=== PATIENT | male | born 2000 | race Caucasian/White ===

== ENCOUNTER 2024-08-27 22:30 | Emergency (ER) | payer OTHER, SELFPAY ==
[2024-08-27 22:32] VITALS: BP 158/84; PULSE 59; RESP 16; TEMP 36.8; O2SAT 99; BMI 19.7
[2024-08-27] MEDS: Lidocaine/Epi/Tetracaine 50 ML 1 APPLIC TOPICAL (22:54)
[2024-08-27] MEDS: Lidocaine 1% (20 ml mdv) 20 ML Vial INFILT (22:55)
--- NOTE | 2024-08-27 23:57 | EDS_ITS ---
HPI History of Present Illness Chief Complaint: Laceration Informant: patient and parent Narrative Narrative: 24-year-old male had a syncopal near syncopal episode and struck his face on a PNO causing laceration to the forehead and between the eyebrows. They were talking about IVs and getting his wisdom teeth pulled. He did not experience any chest pain palpitations shortness of breath prior to the event. Other than the laceration he states he is feeling fine. PFSH PFSH Medical History no medical history Home Medications ?Medication ?Instructions ?Recorded ?Last Taken ?Type NK 08/27/24 Unknown History Allergy/AdvReac Type Severity Reaction Status Date / Time No Known Allergies Allergy Verified 08/27/24 22:34 Social History Smoking Status: Never smoker alcohol intake: never ROS ROS ED Constitutional Constitutional ED: Denies chills, fever(s) or weight loss Eyes Eyes: Denies change in vision or diplopia ENT ENT ED: Denies ear pain, rhinorrhea or sore throat Cardiovascular Cardiovascular: Denies chest pain, orthopnea, palpitations or racing heartbeat Respiratory/Chest Respiratory/Chest: Denies cough, dyspnea or orthopnea Gastrointestinal Gastrointestinal: Denies abdominal pain, diarrhea, nausea or vomiting Genitourinary Genitourinary ED: Denies dysuria, hematuria or urinary frequency Musculoskeletal Musculoskeletal: Denies arthralgias or myalgias Integumentary Reports other Details: Facial laceration ; Denies abscess or rash Neurologic Neurologic: Denies headache(s) or weakness Psychiatric Psychiatric: Denies anxiety, depression, suicidal ideation or suicidal thoughts Endocrine Endocrinology: Denies polydipsia, polyphagia or polyuria Allergic/Immunologic Allergic/Immunologic ED: Denies mouth swelling, tongue swelling or urticaria EXAM Physical Exam Const Vital Signs: 08/27/24 22:32 Temperature 98.2 F Temperature Source Oral Pulse Rate 59 L Respiratory Rate 16 Blood Pressure 158/84 H Blood Pressure Mean 108 Pulse Ox 99 Oxygen Delivery Method Room Air Positive well nourished and well developed General Appearance ED: well developed HEENT Reports normocephalic and moist mucous membranes HEENT Narrative: 3 cm oblique linear laceration in between the eyebrows extending down to the start of his nose. The wound is gaping. He is able to wrinkle his forehead. Neurovascularly intact. Bleeding controlled. There is no septal hematoma no obvious nasal deformity or palpable bony depression Eyes PERRL and EOMs intact bilaterally Neck no lymphadenopathy, supple and no JVD Resp normal respiratory effort and clear to auscultation bilaterally Cardio regular rate, regular rhythm and no murmurs GI normal to inspection, nondistended, normoactive bowel sounds and non-tender Palpation: soft Back/Spine no CVA tenderness and normal ROM Extremity normal to inspection General Extremety ED: Negative for edema General Extremity: Negative for edema Neuro oriented x3 and CN's II-XII intact bilaterally Sensorium / Orientation: alert Motor Exam: strength 5/5 throughout Psych mental status grossly normal Mood & Affect: Negative for depressed or tearful Skin no rashes or lesions noted and no wounds MDM MDM MDM Narrative Medical decision making narrative: Differential diagnosis includes intracranial hemorrhage hematoma fracture neurovascular injury laceration Wound was locally anesthetized using let and then further anesthetized using 1% lidocaine. Wound was washed with Shur-Clens and explored. It was closed using a total of 6 simple interrupted Ethilon sutures. Wound length of 3 cm. Wound care discussed with patient and family stitches will need to be removed in about 5 days. History & Record Review Discussion w/independent historian: Patient and Family Discharge Plan Triage Chief Complaint: Laceration ED Provider: Alireza Hernandez Dx/Rx/DC Orders Clinical Impression: Facial laceration Instructions: ED Laceration, All Closures Prescriptions: No Action NK Primary Care Provider: Care Physician,No Primary [facility]errals: [facility] [Provider Group] - 5 Days for suture removal Care Physician,No Primary [Primary Care Provider] - Print Language: Kinyarwanda Disposition Disposition: Home, Self Care
[2024-08-28] VITALS: BP 142/74; PULSE 58; RESP 16; TEMP 37.1; O2SAT 98
== END 2024-08-28 00:14 | disposition home or self-care (01) ==
PROVIDERS: Emergency Provider Emergency Medicine; Visit Provider Emergency Medicine
DX: S01.81XA Laceration without foreign body of other part of head, initial encounter (principal); R55 Syncope and collapse
CPT/HCPCS: 12013; 99283

== ENCOUNTER 2025-03-16 08:04 | Emergency (ER) | payer OTHER, SELFPAY ==
[2025-03-16 08:05] VITALS: BP 136/96; PULSE 54; RESP 16; TEMP 37.1; O2SAT 100; BMI 18.9
[2025-03-16 08:07] VITALS: BP 122/71; PULSE 49; RESP 18; TEMP 36.7; O2SAT 100
--- NOTE | 2025-03-16 08:34 | CT_ITS ---
PROCEDURE: ABDOMEN/PELVIS W IV CONT ONLY 03/16/2025 REASON FOR EXAM: RIGHT LOWER QUADRANT PAIN Two-month history are nausea and vomiting. TECHNIQUE: ABDOMEN/PELVIS W IV CONT ONLY Coronal and Sagittal reconstruction series were provided. CONTRAST: Isovue 370 VOLUME: 100 mL One or more dose reduction techniques were used (e.g., Automated exposure control, adjustment of the mA and/or kV according to patient size, use of iterative reconstruction technique. RADIATION DOSE SUMMARY: CTDlvol: 13.25 mGy DLP: 352.41 mGycm COMPARISON: None FINDINGS: Lung bases: Lung bases are clear. Liver: There is evidence of hepatic congestion with prominence of the portal venous triads. Gallbladder: Unremarkable Spleen: Normal size. Pancreas: Normal size without evidence of mass surrounding inflammation or ductal dilation. Adrenals: Unremarkable Kidneys: Normal renal sizes. No hydronephrosis. Bladder: Bladder wall thickening. Distended urinary bladder. Findings suggestive of inflammatory changes in the region of the prostate. Clinical correlation recommended. The seminal vesicles are enlarged. Bowel: Unremarkable Appendix: Unremarkable Lymph nodes: Unremarkable. Vasculature: The inferior vena cava is distended. Peritoneum / Retroperitoneum: Unremarkable Bones: Unremarkable CT/Abdomen/Pelvis W IV Cont ONLY IMPRESSION: Hepatic congestion with prominence of the portal venous triads. Distended inferior vena cava. Bladder wall thickening. Findings suggestive of inflammatory changes surrounding the prostate with promi nence of the seminal vesicles. Reading Location: [id number]
--- NOTE | 2025-03-16 08:36 | ED.VIS.GI ---
HPI HPI - GI History of Present Illness Chief Complaint: Abd Pain Narrative Narrative: 25-year-old male who denies significant past medical history presents with his mother because of right lower quadrant abdominal pain that began this morning at 6 AM, approximately 2 and half hours ago. It woke him from sleep. He describes it as both sharp and stabbing and sometimes dull and achy. Is worse with movement and improved by lying still. He denies any fevers or chills but did have an episode of nausea and vomiting. No dysuria or hematuria. However, over the last few weeks, he states that he would have right lower quadrant abdominal pain that would last for about a day and resolved. He may have had dark urine at that time, but it resolved. He runs/jogs frequently and states that he be comes dehydrated easily. He states that the episode that began at 6 AM this morning was a lot worse than previous episodes. He denies any problems with bowel movements. No diarrhea. [facility] Medical History Visit for suture removal Medical History no medical history Home Medications ?Medication ?Instructions ?Recorded ?Last Taken ?Type NK 08/27/24 Unknown History Allergy/AdvReac Type Severity Reaction Status Date / Time No Known Allergies Allergy Verified 03/16/25 08:07 Social History Smoking Status: Never smoker alcohol intake: never ROS ROS ED ROS Narrative Review of systems positive for right lower quadrant abdominal pain described as both sharp and stabbing and dull and achy. Positive nausea and vomiting this morning. Previous dark urine and intermittent episodes that lasted a day of right lower quadrant pain over the last few weeks. No problems with bowel movements, no diarrhea. No prior abdominal surgeries. Denies daily medications as well. EXAM Physical Exam Narrative Exam Narrative: Afebrile. Vital signs noted. Nontoxic-appearing. Cardiovascular examination reveals bradycardia at rest. Lungs are clear to auscultation bilaterally. The abdomen is soft with mild tenderness to palpation in the right lower quadrant of the abdomen. No guarding or rebound. Negative Rovsing sign, negative heel strike, no pain with flexion of right knee. Neurological examination nonfocal, nonlateralizing. Const Vital Signs: 03/16/25 08:05 03/16/25 08:07 03/16/25 10:15 Temperature 98.8 F 98.1 F 96.9 F L Temperature Source Oral Oral Oral Pulse Rate 54 L 49 L 45 L Respiratory Rate 16 18 16 Blood Pressure 136/96 H 122/71 H 111/64 Blood Pressure Mean 109 88 79 Pulse Ox 100 100 100 Oxygen Delivery Method Room Air Room Air Room Air 03/16/25 10:15 Temperature Temperature Source Pulse Rate 46 L Respiratory Rate 16 Blood Pressure 110/64 Blood Pressure Mean 79 Pulse Ox 99 Oxygen Delivery Method Room Air MDM MDM MDM Narrative Medical decision making narrative: The differential diagnosis includes but not limited to musculoskeletal abdominal pain versus acute appendicitis versus ureterolithiasis versus pyelonephritis. I have lower clinical suspicion for pyelonephritis as he is not having dysuria or hematuria, no fevers or chills. I do feel CT imaging is indicated. He was bolused normal saline 1 L intravenously and administered morphine and ondansetron for analgesia. Upon repeat examination, he is feeling improved. I reviewed his laboratory work and he has slight elevation of his white count at 11.2 which I think is nonspecific, hemoglobin 13.4, hematocrit 39.3. Platelet count normal at 174. CMP is significant for slightly elevated AST of 72 and ALT of 87 with total bili 2.0. I also find this nonspecific. Lipase normal at 26 so I doubt pancreatitis. Urinalysis is negative for infection with 0 WBCs and 0 RBCs, 0 bacteria. I do not feel antibiotics are indicated. I reviewed his CT report and the appendix appears normal. He does have hepatic congestion with prominence of portal vein triads. I do not feel he requires admission for this. I suggested follow-up with gastroenterology and/your primary care. Additionally, CT commented on inflammation around the prostate and thickened bladder wall. I do not feel he has a cystitis that requires antibiotics, and I discussed with him the possibility of prostatitis, but I do not think that is the cause of his right lower quadrant abdominal pain. In discussion with the patient, he is declining rectal examination and he is not having any symptoms of prostatitis, so I discussed return instructions with him in follow-up. I feel he can be discharged safely home. Patient and mother are agreeable to the plan. Disposition is discharged home in stable condition. History & Record Review Discussion w/independent historian: Patient and Family (Mother) Additional record(s) reviewed:: Prior ED visit (Previously seen for facial laceration, noncontributory to current chief complaint.) Lab Data Attestation: I reviewed the patient's lab results. Labs: Laboratory Results - last 24 hr 03/16/25 03/16/25 08:57 10:47 WBC 11.2 H RBC 4.41 L Hgb 13.4 Hct 39.3 L MCV 89.1 MCH 30.4 MCHC 34.1 RDW Std Deviation 41.1 RDW Coeff of Essence 12.6 Plt Count 174 MPV 9.0 Immature Gran % (Auto) 0.400 Neut % (Auto) 76.5 H Lymph % (Auto) 16.1 L Arthur % (Auto) 5.2 Eos % (Auto) 1.1 Baso % (Auto) 0.7 Absolute Neuts (auto) 8.6 H Absolute Lymphs (auto) 1.81 Nucleated RBC % 0 Sodium 141 Potassium 3.7 Chloride 102 Carbon Dioxide 27.9 Anion Gap 11 BUN 19 Creatinine 0.89 Estim Creat Clear Calc 103.37 Est GFR (MDRD) Non-Af 121 BUN/Creatinine Ratio 21.9 H Glucose 92 Calcium 9.7 Total Bilirubin 2.04 H AST 72 H ALT 87 H Alkaline Phosphatase 70 Total Protein 6.9 Albumin 4.5 Globulin 2.4 Albumin/Globulin Ratio 1.9 Lipase 26 Urine Color Yellow Urine Clarity Clear Urine pH 6.5 Ur Specific Ch[place]rant 1.010 Urine Protein 30 H Urine Glucose (UA) Normal Urine Ketones Negative Urine Occult Blood 250 H Urine Nitrite Negative Urine Bilirubin Negative Urine Urobilinogen Normal Ur Leukocyte Esterase Negative Urine RBC 0 SEEN Urine WBC 0 SEEN Ur Squamous Epith Cells 0 SEEN Urine Bacteria 0 SEEN Urine Mucus 0 SEEN Radiography Diagnostic Testing: Clinical Impression(s) from Imaging Studies Abdomen/Pelvis CT 03/16/25 08:34 IMPRESSION: Hepatic congestion with prominence of the portal venous triads. Distended inferior vena cava. Bladder wall thickening. Findings suggestive of inflammatory changes surrounding the prostate with prominence of the seminal vesicles. Reading Location: [id number] Discharge Plan Triage Chief Complaint: Abd Pain ED Provider: Eladio Ch Dx/Rx/DC Orders Clinical Impression: Abdominal pain, acute, right lower quadrant, Elevated LFTs Instructions: ED Abdominal Pain Unkn Cause Male... Prescriptions: No Action NK Primary Care Provider: Care Physician,No Primary Referrals: Bradley Burkett MD [Med Staff - Active Staff] - As soon as possible Lazaro Carreon DO [Med Staff - Active Staff] - 1-2 Weeks Care Physician,No Primary [Primary Care Provider] - Activity Restrictions/Additional Instructions: You had abnormal liver function test today. These should be rechecked in the future. Follow-up with your primary care provider or gastroenterology, Dr. Carreon in 1 to 2 weeks. Return to the emergency department with fever, increased pain, new or worsening symptoms. You should follow-up with a primary care provider as well. Print Language: Danish Disposition Disposition: Home, Self Care
[2025-03-16 09:02] LABS: Hematocrit 39.3 % (40-54); Hemoglobin 13.4 g/dL (13.0-16.5); Immature Granulocytes Count 0.050 X10^3/uL (0.0-0.0); Mean Corp Hgb Conc 34.1 g/dL (32-36); Mean Corpuscular Volume 89.1 fL (80-94); Mean Platelet Vol. 9.0 fl (6.2-12.0); NRBC Flagged by Analyzer 0 % (0-5); Platelet Count 174 K/mm3 (150-450); RBC Distribution Width CV 12.6 % (11.6-14.6); RBC Distribution Width SD 41.1 fl (35.1-43.9); Red Blood Count 4.41 M/mm3 (4.6-6.2); White Blood Count 11.2 K/mm3 (4.4-11.0)
[2025-03-16 09:38] LABS: AST(SGOT) 72 U/L (<=37); Alanine Aminotransfer ALT/SGPT 87 U/L (<=46); Albumin, Serum 4.5 g/dL (3.5-5.0); Alkaline Phosphatase 70 U/L (40-129); Anion Gap 11 (5-15); BUN 19 mg/dL (4-19); BUN/Creat Ratio 21.9 RATIO (10-20); Calcium,Total 9.7 mg/dL (7.6-11.0); Carbon Dioxide 27.9 mmol/L (21.0-32.0); Chloride 102 mmol/L (98-108); Estimated Creatinine Clearance 103.37 ml/min (50-250); Globulin 2.4 g/dL (2.2-4.2); Glucose 92 mg/dL (70-99); Lipase 26 U/L (13-75); Potassium 3.7 mmol/L (3.3-5.1)
[2025-03-16] MEDS: 0.9% Normal Saline (1000mL) 1,000 ML 999 ML IV (10:13)
[2025-03-16 10:15] VITALS: BP 110/64; BP 111/64; PULSE 45; PULSE 46; RESP 16; TEMP 36.1; O2SAT 100; O2SAT 99
[2025-03-16 10:53] LABS: Mucous, Urine 0 SEEN /hpf (<or=2+); Red Blood Cells-Urine 0 SEEN /hpf (0-5); Squamous Epithelial Cells - UA 0 SEEN /hpf (0-5)
[2025-03-16 10:54] LABS: Color, Urine Yellow (Yellow); Glucose, Dipstick Normal (Normal); Ketone-Dipstick Negative (Negative); Leukocyte Esterase-Dipstick Negative /ul (Negative); Nitrite-Dipstick Negative (Negative); Occult Blood-Urine 250 /ul (Negative); Protein-Dipstick 30 mg/dl (Negative); Specific Gravity, Urine 1.010 (1.002-1.030); Urine Bilirubin Dipstick Negative (Negative)
--- OUTSIDE RECORDS SUMMARY | 2025-03-16 11:04 | XMS RPT_ITS | CCD ---
Author Organization [facility] Care Team Providers Care Territory Supervisor Name Role Phone Michael Paul Attending Unavailable Care Physician, No Primary Referring Unava ilable Care Physician, No Primary Primary Care Unava ilable Alireza Hernandez Attending Unavailable Care Physician, No Primary Primary Care Unava ilable Problems Problem Classification Problem Date Documented Da te Episodic/Chronic Open wounds of head; neck; and trunk (1 source) Laceration without foreign body of other part of head, initial encounter; Translations: [Laceration without foreign body of other part of head, initial encounter] Onset: 09-16-2024 Episodic Results Test Name Value Interpretation Reference Range Facil ity Urgent Care Visit Reporton 0 09-02-2024 Urgent Care Visit Report [facility] [address], [address] [place] [address] OFFICE VISIT Date of Service: 09/02/24 MR#: [id number] Acct: [id number] Name: DOUGLAS HOLDEN Rep #: [id number] : 2000 Provider: ANKUR Paul Age/Sex: 24/M Location[facility] Status: Signed Intake Vital Signs 08/27/24 22:32 09/02/24 08:58 Height 5 ft 9 in BP 124/80 H Position Sitting Pulse 68 Temp 97.4 F L Temp Source Oral Pulse Oximetry (%) 96 Oxygen Delivery Method room air Intake Visit Reasons: SUTURE REMOVAL Accompanied by: Mother Allergies No Known Allergies Allergy (Verified 09/02/24 08:48) Medications ???Medication ???Instructions ???Recorded ???Confirmed ???Type NK 08/27/24 09/02/24 History Nurse's Note: Patient is here for a Suture removal. Patient had 6 sutures placed in the ER. 6 stitches removed at the [facility] and cleaned, [facility] Medical History (Updated 09/02/24 @ 09:04 by ANKUR Nelson) Visit for suture removal Social History Smoking Status: Never smoker alcohol intake: never HPI HPI Details: DOUGLAS HOLDEN, is a 24 M who presents to the office today for HPI: Patient presents today for suture removal on his forehead. About a week ago apparently he was standing beside a panel as the family was talking about IVs and he passed out. 6 sutures were placed at that time and he presents today for removal of them. He denies any fever or drainage from the wound. Does note a mild headache. ROS: As noted in HPI Physical Exam: VITALS: Reviewed. GEN: Healthy appearing, well-developed, NAD. PSYCH: AOx3. Normal memory, mood, and affect. LUNGS: Normal respiratory effort. SKIN: Warm, well perfused. No skin rashes or abnormal lesions noted. Linear well-healed wound noted mid forehead with 6 sutures. MSK: Normal gait. NEURO: Ambulating with no limitations. Normal muscle strength and tone. No focal deficits. Office Procedures Suture/Staple Removal Suture/Staple Staple/Suture Removal: 6 interrupted sutures removed by Andrew Trotter MA. Coding Level of Care Code Off vis,est,level 2 Diagnoses Visit for suture removal Z48.02 Assessment and Plan Assessment and Plan (1) Visit for suture removal: Status: Acute Plan: 6 interrupted sutures were removed. On evaluation wound appears to be healing well with no surrounding erythema or drainage noted. I did recommend that for the next week patient avoid submersing the wound and water such as hot tubs or swimming pools but said that showering would be fine. 09/02/24 0904 Date Michael PASCUAL Cosigner Signature: Date (if applicable) CC: [facility] Emergency Department Summary on 08-27-2024 Emergency Department Summary [facility] Medical Records Department [address] [place] [address] Emergency Department Summary 08/27/24 MR#: [id number] Acct: [id number] Name: DOUGLAS HOLDEN Rep #: [id number] : 2000 From: Alireza Hernandez DO PCP: Care Physician,No Primary Status:DEP ER Location: ED HPI History of Present Illness Chief Complaint: Laceration Informant: patient and parent Narrative Narrative: 24-year-old male had a syncopal near syncopal episode and struck his face on a PNO causing laceration to the forehead and between the eyebrows. They were talking about IVs and getting his wisdom teeth pulled. He did not experience any chest pain palpitations shortness of breath prior to the event. Other than the laceration he states he is feeling fine. PFSH PFSH Medical History no medical history Home Medications ???Medication ???Instructions ???Recorded ???Last Taken ???Type NK 08/27/24 Unknown History Allergy/AdvReac Type Severity Reaction Status Date / Time No Known Allergies Allergy Verified 08/27/24 22:34 Social History Smoking Status: Never smoker alcohol intake: never ROS ROS ED Constitutional Constitutional ED: Denies chills, fever(s) or weight loss Eyes Eyes: Denies change in vision or diplopia ENT ENT ED: Denies ear pain, rhinorrhea or sore throat Cardiovascular Cardiovascular: Denies chest pain, orthopnea, palpitations or racing heartbeat Respiratory/Chest Respiratory/Chest: Denies cough, dyspnea or orthopnea Gastrointestinal Gastrointestinal: Denies abdominal pain, diarrhea, nausea or vomiting Genitourinary Genitourinary ED: Denies dysuria, hematuria or urinary frequency Musculoskeletal Musculoskeletal: Denies arthralgias or myalgias Integumentary Reports other Details: Facial laceration ; Denies abscess or rash Neurologic Neurologic: Denies headache(s) or weakness Psychiatric Psychiatric: Denies anxiety, depression, suicidal ideation or suicidal thoughts Endocrine Endocrinology: Denies polydipsia, polyphagia or polyuria Allergic/Immunologic Allergic/Immunologic ED: Denies mouth swelling, tongue swelling or urticaria EXAM Physical Exam Const Vital Signs: 08/27/24 22:32 Temperature 98.2 F Temperature Source Oral Pulse Rate 59 L Respiratory Rate 16 Blood Pressure 158/84 H Blood Pressure Mean 108 Pulse Ox 99 Oxygen Delivery Method Room Air Positive well nourished and well developed General Appearance ED: well developed HEENT Reports normocephalic and moist mucous membranes HEENT Narrative: 3 cm oblique linear laceration in between the eyebrows extending down to the start of his nose. The wound is gaping. He is able to wrinkle his forehead. Neurovascularly intact. Bleeding controlled. There is no septal hematoma no obvious nasal deformity or palpable bony depression Eyes PERRL and EOMs intact bilaterally Neck no lymphadenopathy, supple and no JVD Resp normal respiratory effort and clear to auscultation bilaterally Cardio regular rate, regular rhythm and no murmurs GI normal to inspection, nondistended, normoactive bowel sounds and non-tender Palpation: soft Back/Spine no CVA tenderness and normal ROM Extremity normal to inspection General Extremety ED: Negative for edema General Extremity: Negative for edema Neuro oriented x3 and CN's II-XII intact bilaterally Sensorium / Orientation: alert Motor Exam: strength 5/5 throughout Psych mental status grossly normal Mood Affect: Negative for depressed or tearful Skin no rashes or lesions noted and no wounds MDM MDM MDM Narrative Medical decision making narrative: Differential diagnosis includes intracranial hemorrhage hematoma fracture neurovascular injury laceration Wound was locally anesthetized using let and then further anesthetized using 1% lidocaine. Wound was washed with Shur-Clens and explored. It was closed using a total of 6 simple interrupted Ethilon sutures. Wound length of 3 cm. Wound care discussed with patient and family stitches will need to be removed in about 5 days. History Record Review Discussion w/independent historian: Patient and Family Discharge Plan Triage Chief Complaint: Laceration ED Provider: Alireza Hernandez Dx/Rx/DC Orders Clinical Impression: Facial laceration Instructions: ED Laceration, All Closures Prescriptions: No Action NK Primary Care Provider: Care Physician,No Primary Referrals: [facility] [Provider Group] - 5 Days for suture removal Care Physician,No Primary [Primary Care Provider] - Print Language: Gabonese Disposition Disposition: Home, Self Care What to do if you have Problems For any increased pain, shortness of breath, bleedi (more content not included)... [facility] Encounters Encounter Date Encounter Type Care Provider Facility Start: 09-02-2024 End: 09-02-2024 ambulatory Michael Paul Facility[place] Start: 08-27-2024 End: 08-28-2024 Emergency department patient visit Alireza Hernandez Facility:[facility] Payers Date Payer Category Payer Self-pay 2024 Unknown [id number] Unknown [id number] Unknown [id number] Summary Purpose Family History No Family History Records Found Advance Directives No Advanced Directives Records Found Additional Source Comments (unrecognized sect ion and content) No Status Records Found INFORMATION SOURCE (unrecogn ized section and content) DATE CREATED AUTHOR 09/18/2024 [facility] FOR RECORDS PERTAINING TO PATIENTS WHO ARE OR HAVE BEEN ENROLLED IN A CHEMICAL DEPENDENCY/SUBSTANCEABUSE PROGRAM, SOME INFORMATION MAY BE OMITTED. This clinical summary was aggregated from multiple sources. Caution should be exercised in using it in the provision of clinical care. This summary normalizes information from multiple sources, and as a consequence, information in this document may materially change the coding, format and clinical context of patient data. In addition, data may be omitted in some cases. CLINICAL DECISIONS SHOULD BE BASED ON THE PRIMARY CLINICAL RECORDS. [employer] provides no warranty or guarantee of the accuracy or completeness of information in this document.
[2025-03-16 11:46] VITALS: BP 112/65; PULSE 43; RESP 16; TEMP 36.2; O2SAT 100
== END 2025-03-16 11:49 | disposition home or self-care (01) ==
PROVIDERS: Emergency Provider Emergency Medicine; Visit Provider Emergency Medicine
DX: R10.31 Right lower quadrant pain (principal); R11.2 Nausea with vomiting, unspecified; K76.1 Chronic passive congestion of liver; R79.89 Other specified abnormal findings of blood chemistry
CPT/HCPCS: 74177; 80053; 81001; 83690; 85025; 96361; 96374; 96375; 99283; Q9967; J2405

== ENCOUNTER 2025-04-13 08:02 | Emergency (ER) | payer OTHER, SELFPAY ==
[2025-04-13] VITALS (8 sets, daily range): BP systolic 112–134; BP diastolic 77–93; PULSE 40–80; RESP 15–106; TEMP 36.6–37.2; O2SAT 97–100; BMI 18.7
--- NOTE | 2025-04-13 08:33 | CT_ITS ---
PROCEDURE: ABDOMEN/PELVIS WITH CONTRAST 04/13/2025 REASON FOR EXAM: RLQ ABD PAIN TECHNIQUE: Procedure Code: [id number] Modality: CT Procedure: ABDOMEN/PELVIS WITH CONTRAST Coronal and Sagittal reconstruction series were provided. CONTRAST: Isovue 370 VOLUME: 98 mL One or more dose reduction techniques were used (e.g., Automated exposure control, adjustment of the mA and/or kV according to patient size, use of iterative reconstruction technique. RADIATION DOSE SUMMARY: CTDlvol: 26 mGy DLP: 329 mGycm COMPARISON: March 16, 2025 FINDINGS: Lung bases: The heart is mildly enlarged. Liver: Intrahepatic IVC and hepatic veins are markedly engorged. Periportal edema is seen throughout the liver similar to prior exam. Gallbladder: No calculus is seen. Some 3rd spacing is seen around the gallbladder wall. No biliary duct dilation. Spleen: Normal. Pancreas: Normal. Adrenals: Normal. Kidneys: Left kidney is normal. Right kidney shows a delayed nephrogram and mild collecting system dilation related to a likely calculus in the pelvis measuring 5.4 mm. Bladder: Normal. Reproductive Organs: Unremarkable Bowel: Normal. Appendix: Normal. Lymph nodes: Normal Vasculature: Normal appearance of the aorta. Engorgement of the IVC. Peritoneum / Retroperitoneum: No free air, free fluid or mass. Bones: Straightening of the normal lumbar lordosis. CT/Abdomen/Pelvis WITH Contrast IMPRESSION: 1. Mild cardiac enlargement. Engorgement of the intrahepatic IVC, hepatic vei ns and marked periportal edema. In the absence of very aggressive hydration, recommend correlation with cardiac history. Conside r echocardiogram if appropriate. Similar finding was seen involving the liver March 16, 2025. 2. Delayed nephrogram on the right side with mild hydronephrosis and hydrouret er related to a 5.3 mm calculus located in the pelvis just proximal to the ureterovesical junction. 3. Normal appendix. Reading Location: [id number]
--- NOTE | 2025-04-13 08:34 | ED.VIS.GI ---
HPI HPI - GI History of Present Illness Chief Complaint: Abd Pain Informant: patient Narrative Narrative: Patient is a 25-year-old male with no significant past medical history presenting with recurrent right lower quadrant abdominal pain, nausea and vomiting. Patient states that started while he was at work around 1:30 AM (works 3rd shift). States it worsened around 4:30 AM and became nonstop. Describes as a cramping and swollen sensation in his right lower quadrant. Notes he did have some mild urgency when it first started and last time he had an episode like this he had some slight dysuria. He developed vomiting around 4 PM and then afterwards anytime he tried to eat or drink some and he would throw up. He denies any diarrhea. States he had a normal bowel movement at 4 AM. He does report that he is training for marathon so he ran a distance run yesterday and then went to work. He is not sure if that is related. He notes he had a similar episode about a month ago seen in the ER. At that time he had an subtle finding of some portal vascular congestion but otherwise had negative workup and ultimately was discharged home. He states between his work schedule and availability he was not able to follow-up. He notes that he got better after couple days and thought maybe this was eating enough. Took 500 mg of Tylenol powder before coming in with no relief of his symptoms Denies any testicular pain. Denies any known family history of inflammatory bowel disease such as Crohn's or ulcerative colitis. Denies any black or blood in stool. No fevers or chills reported. No other complaints or concerns at this time. Denies any alcohol or tobacco use. [facility] Medical History Visit for suture removal Home Medications ?Medication ?Instructions ?Recorded ?Last Taken ?Type ibuprofen 600 mg tablet 600 mg PO Q6H PRN pain #20 tabs 04/13/25 Unknown Rx ondansetron 4 mg disintegrating 4 mg PO Q8H PRN PRN Nausea #10 tabs 04/13/25 Unknown Rx tablet oxycodone-acetaminophen 5 mg-325 1 tab PO Q4H PRN Pain 3 days #18 04/13/25 Unknown Rx mg tablet TABLETS Allergy/AdvReac Type Severity Reaction Status Date / Time No Known Allergies Allergy Verified 04/13/25 08:03 Social History Smoking Status: Never smoker alcohol intake: never ROS ROS ED Constitutional Constitutional ED: Denies chills or fever(s) Respiratory/Chest Respiratory/Chest: Denies cough or dyspnea Gastrointestinal Gastrointestinal: Reports abdominal pain, nausea and vomiting; Denies constipation, diarrhea or melena Genitourinary Genitourinary ED: Reports dysuria; Denies hematuria or urinary frequency Musculoskeletal Musculoskeletal: Denies arthralgias or myalgias Integumentary Denies rash Neurologic Neurologic: Denies weakness Hematologic/Lymphatic Hematologic/Lymphatic: Denies easy bleeding or easy bruising EXAM Physical Exam Const Vital Signs: 04/13/25 08:03 04/13/25 08:06 04/13/25 09:06 Temperature 97.9 F 98 F 97.8 F Temperature Source Oral Oral Oral Pulse Rate 48 L 46 L 43 L Respiratory Rate 18 15 18 Blood Pressure 134/80 H 132/81 H 124/93 H Blood Pressure Mean 98 98 103 Pulse Ox 100 100 100 Oxygen Delivery Method Room Air Room Air Room Air 04/13/25 10:00 04/13/25 11:00 04/13/25 12:00 Temperature 98.4 F 97.8 F Temperature Source Oral Oral Pulse Rate 47 L 57 L 40 L Respiratory Rate 15 17 16 Blood Pressure 122/77 H 125/86 H 120/80 Blood Pressure Mean 92 99 93 Pulse Ox 97 100 98 Oxygen Delivery Method Room Air Room Air 04/13/25 14:00 04/13/25 15:05 Temperature 99 F Temperature Source Pulse Rate 80 80 Respiratory Rate 106 H Blood Pressure 112/80 112/80 Blood Pressure Mean 90 90 Pulse Ox 100 100 Oxygen Delivery Method Positive well nourished and well developed General Appearance ED: well developed HEENT Reports moist mucous membranes Neck supple Resp normal respiratory effort and clear to auscultation bilaterally Cardio regular rhythm Rate: bradycardia GI non-distended GI Narrative: No right inguinal or ventral hernia appreciated Inspection: Negative for abdominal distention Auscultation: normoactive bowel sounds Palpation: soft and tender RLQ; Negative for guarding or rigid Back/Spine no CVA tenderness Extremity full ROM Neuro Sensorium / Orientation: alert Motor Exam: Negative for general weakness Psych mental status grossly normal and thought process normal Skin no wounds MDM MDM MDM Narrative Medical decision making narrative: Patient evaluated for right lower quadrant pain with associated nausea and vomiting. Differential clues not limited to appendicitis, renal colic, volvulus, abdominal wall strain, rhabdomyolysis. He does not have tenderness in his right upper quadrant and a negative Paulino's sign lower suspicion for acute hepatobiliary pathology. Given his abnormal CT prior however will obtain liver enzymes and lipase. Patient given IV fluids and Toradol for initial pain control. Will obtain CT with IV and oral contrast given his low body mass index and acute onset of symptoms. Repeat evaluation patient's pain is worsening. Is then given IV morphine. Does require further Zofran. He does have a leukocytosis of 14.1 unclear if this is infectious or reactive. CMP does show a mild transaminitis which is chronic for the patient, mild increase of his total bilirubin but this is stable and otherwise normal electrolytes. Urinalysis shows blood but not consistent with infection. CT of the abdomen pelvis shows mild hydronephrosis and hydroureter related to 5.3 mm calculus of the right ureter just proximal to the UVJ. This likely the cause of his acute symptoms. In addition he does have marked cardiac enlargement, engorgement of intrapelvic IVC, [place] veins and marked portal edema. Case is discussed with Dr. Spivey, cardiology given of the cardiac enlargement. He suspects that given that the patient is asymptomatic and does not have any family history significant cardiac disease at a young age or arrhythmia/unexplained (was confirmed with the patient) likely this is changes associated with his endurance running and marathon running. Is agreeable with having the patient get outpatient MRI. Patient encouraged to avoid strenuous physical activity until cleared by cardiology out of abundance of caution. Patient has further pain and ultimately requires additional Zofran and Dilaudid. On repeat evaluation findings feeling improved and tolerating p.o. challenge. Is offered admission (would be transferred to do not currently have urology coverage) but would like to try management at home with symptomatic treatment. Is given outpatient information for PCP (is planning on following with Dr. Burkett but is not established yet) as well as other local urologist as our urologist is going out of country tomorrow and will not be available for close follow-up. Patient mother agreeable plan of care. Patient discharged home symptomatic treatment including Motrin, Zofran and Percocet. Given return precautions. Counseled that anytime he cannot handle his symptoms from a kidney stone standpoint/pain control he should return the emergency room. Lab Data Attestation: I reviewed the patient's lab results. Labs: Laboratory Results - last 24 hr 04/13/25 04/13/25 08:45 10:00 WBC 14.1 H RBC 5.04 Hgb 15.5 Hct 44.6 MCV 88.5 MCH 30.8 MCHC 34.8 RDW Std Deviation 41.6 RDW Coeff of Essence 12.7 Plt Count 181 MPV 9.5 Immature Gran % (Auto) 0.400 Neut % (Auto) 86.9 H Lymph % (Auto) 8.2 L [place] % (Auto) 4.1 Eos % (Auto) 0.0 Baso % (Auto) 0.4 Absolute Neuts (auto) 12.3 H Absolute Lymphs (auto) 1.16 Nucleated RBC % 0 Sodium 142 Potassium 4.4 Chloride 102 Carbon Dioxide 25.0 Anion Gap 14 BUN 18 Creatinine 1.01 Estim Creat Clear Calc 90.24 Est GFR (MDRD) Non-Af 105 BUN/Creatinine Ratio 17.3 Glucose 110 H Calcium 10.3 Total Bilirubin 2.31 H Direct Bilirubin 0.90 H AST 57 H ALT 86 H Alkaline Phosphatase 78 Total Creatine Kinase 368 H Total Protein 8.1 Albumin 5.2 H Globulin 2.9 Urine Color Yellow Urine Clarity Clear Urine pH 6.0 Ur Specific [place] 1.025 Urine Protein 100 H Urine Glucose (UA) Normal Urine Ketones 15 H Urine Occult Blood 150 H Urine Nitrite Negative Urine Bilirubin Negative Urine Urobilinogen 1 H Ur Leukocyte Esterase 25 H Urine RBC 10-25 SEEN Urine WBC 0-5 SEEN Ur Squamous Epith Cells 0 SEEN Urine Bacteria 0 SEEN Hyaline Casts 0-5 SEEN Urine Mucus 2+ Radiography Diagnostic Testing: Clinical Impression(s) from Imaging Studies Abdomen/Pelvis CT 04/13/25 08:33 IMPRESSION: 1. Mild cardiac enlargement. Engorgement of the intrahepatic IVC, hepatic veins and marked periportal edema. In the absence of very aggressive hydration, recommend correlation with cardiac history. Consider echocardiogram if appropriate. Similar finding was seen involving the liver March 16, 2025. 2. Delayed nephrogram on the right side with mild hydronephrosis and hydroureter related to a 5.3 mm calculus located in the pelvis just proximal to the ureterovesical junction. 3. Normal appendix. Reading Location: [facility] Management Discussion w/another healthcare provider: [employer] Discharge Plan Triage Chief Complaint: Abd Pain ED Provider: Jeanie Oden Dx/Rx/DC Orders Clinical Impression: Portal venous hypertension, Renal colic on right side, Ureterolithiasis Instructions: ED Kidney Stone with Pain Prescriptions: New ibuprofen 600 mg tablet 600 mg PO Q6H PRN (Reason: pain) Qty: 20 0RF ondansetron 4 mg tablet,disintegrating 4 mg PO Q8H PRN PRN (Reason: Nausea) Qty: 10 0RF oxycodone-acetaminophen 5-325 mg tablet 1 tab PO Q4H PRN (Reason: Pain) 3 Days Qty: 18 0RF Stand Alone Forms: ED Work / School Excuse Other Ambulatory Orders: Echo Complete W/ Contrast (Routine) Facility: [facility] - Location: [facility] Ordered By: Dr. Jeanie Oden Primary Care Provider: Care Physician,No Primary Referrals: Ernesto Kang MD [Non-Staff] - Chris Moses MD [Med Staff - Active Staff] - Juliocesar Spivey MD [Med Staff - Active Staff] - Bradley Burkett MD [Med Staff - Active Staff] - Care Physician,No Primary [Primary Care Provider] - Activity Restrictions/Additional Instructions: Your pain today is caused by 5.6 mm kidney stone on the right side. It should pass on its own but there is a chance that it will not. We given information for local urologist, Dr. Moses. If you cannot get into his office in timely fashion I have given you information for [facility] urology however I cannot guarantee that they can see you. In addition your CT did show some signs of enlargement around the heart and your liver. You have on ultrasound of your heart called an echocardiogram ordered for 11 AM on 04/16/2025. You were given information for this appointment in your paperwork. Please make sure you get this done. Please follow-up with family doctor or cardiology for reviewing these results. If you cannot handle your pain/symptoms at home, keep your medicines down or failure worsening please do not hesitate to return the emergency room. Print Language: Albanian Disposition Disposition: Home, Self Care Discharge Date/Time: 04/13/25 15:05
[2025-04-13] MEDS: 0.9% Normal Saline (1000mL) 1,000 ML 999 ML IV (08:49)
[2025-04-13 09:02] LABS: Hematocrit 44.6 % (40-54); Hemoglobin 15.5 g/dL (13.0-16.5); Immature Granulocytes Count 0.060 X10^3/uL (0.0-0.0); Mean Corp Hgb Conc 34.8 g/dL (32-36); Mean Corpuscular Volume 88.5 fL (80-94); Mean Platelet Vol. 9.5 fl (6.2-12.0); NRBC Flagged by Analyzer 0 % (0-5); Platelet Count 181 K/mm3 (150-450); RBC Distribution Width CV 12.7 % (11.6-14.6); RBC Distribution Width SD 41.6 fl (35.1-43.9); Red Blood Count 5.04 M/mm3 (4.6-6.2); White Blood Count 14.1 K/mm3 (4.4-11.0)
--- OUTSIDE RECORDS SUMMARY | 2025-04-13 09:16 | XMS RPT_ITS | CCD ---
Author Organization [facility] Care Team Providers Care Price Accuracy Supervisor Name Role Phone Care Physician, No Primary Primary Care Provider Unavailable Eladio Ch MD Emergency Provider Care Physician, No Primary Primary Care Unava ilMichael Rain Attending Unavailable Care Physician, No Primary Referring Marlenyva ilAlireza Hernandez Attending Unavailable Care Physician, No Primary Primary Care Unava ilable Care Physician, No Primary Primary Care Unava ilEladio Vera Attending Unavailable Medications Current Medications Medication Drug Class(es) Dates Sig (Normalized) Sig (Original) [place] (Nk) (1 source) Start: 08-27-2024 [place] (Nk) A ctive August 27, 2024 1:00am Completed/Discontinued Medications Medication Drug Class(es) Dates Sig (Normalized) Sig (Original) cephalexin 500 mg oral capsule (1 source) Cephalosporin Antibacterial Start: 03-01-2023 End: 03-11-2023 take 1 capsule by mouth every eight hours Cephalexin 500 mg capsule Discontinued 500 mg PO Q8H 30 10 0 March 01, 2023 12:00am March 10, 2023 12:00am March 11, 2023 12:03am Problems Active Problems Problem Classification Problem Date Documented Da te Episodic/Chronic Abdominal pain (2 sources) Right lower quadrant pain; Translations: [Right lower quadrant pain] Onset: 03-22-2025 03-16-2025 Episodic Allergic reactions (1 source) Irritant contact dermatitis due to plant; Translations: [Irritant contact dermatitis due to plants, except food] 03-01-2023 Episodic Other aftercare (1 source) Surgical follow-up; Translations: [Encounter for removal of sutures] 09-02-2024 Episodic Other screening for suspected conditions (not mental disorders or infectious disease) (1 source) Other specified abnormal findings of blood chemistry; Translations: [Elevated liver function tests] 03-16-2025 Episodic Skin and subcutaneous tissue infections (1 source) Cellulitis of left lower limb; Translations: [Cellulitis of left lower limb] 03-01-2023 Episodic Past or Other Problems Problem Classification Problem Date Documented Da te Episodic/Chronic Open wounds of head; neck; and trunk (2 sources) Facial laceration ; Translations: [Laceration without foreign body of other part of head, initial encounter] Onset: 09-16-2024 09-05-2024 Episodic Results Test Name Value Interpretation Reference Range Facility Abdomen/Pelvis W IV Cont ONL Yon 03-16-2025 Abdomen/Pelvis W IV Cont ONLY [facility] [address] [place] [address] Abdomen/Pelvis W IV Cont ONLY MR#: [id number] Acct: [id number] Name: DOUGLAS HOLDEN Rep #: [id number] : 2000 M 25 From: Roc kang MD PCP: Care Physician,No Primary Status: REG ER Study: Abdomen/Pelvis W IV Cont ONLY Date of Exam: Exam# [id number] Ordering Dr: Eladio Ch MD PROCEDURE: ABDOMEN/PELVIS W IV CONT ONLY 03/16/2025 REASON FOR EXAM: RIGHT LOWER QUADRANT PAIN Two-month history are nausea and vomiting. TECHNIQUE: ABDOMEN/PELVIS W IV CONT ONLY Coronal and Sagittal reconstruction series were provided. CONTRAST: Isovue 370 VOLUME: 100 mL One or more dose reduction techniques were used (e.g., Automated exposure control, adjustment of the mA and/or kV according to patient size, use of iterative reconstruction technique. RADIATION DOSE SUMMARY: CTDlvol: 13.25 mGy DLP: 352.41 mGycm COMPARISON: None FINDINGS: Lung bases: Lung bases are clear. Liver: There is evidence of hepatic congestion with prominence of the portal venous triads. Gallbladder: Unremarkable Spleen: Normal size. Pancreas: Normal size without evidence of mass surrounding inflammation or ductal dilation. Adrenals: Unremarkable Kidneys: Normal renal sizes. No hydronephrosis. Bladder: Bladder wall thickening. Distended urinary bladder. Findings suggestive of inflammatory changes in the region of the prostate. Clinical correlation recommended. The seminal vesicles are enlarged. Bowel: Unremarkable Appendix: Unremarkable Lymph nodes: Unremarkable. Vasculature: The inferior vena cava is distended. Peritoneum / Retroperitoneum: Unremarkable Bones: Unremarkable CT/Abdomen/Pelvis W IV Cont ONLY IMPRESSION: Hepatic congestion with prominence of the portal venous triads. Distended inferior vena cava. Bladder wall thickening. Findings suggestive of inflammatory changes surrounding the prostate with prominence of the seminal vesicles. Reading Location: [id number] CC: Dr. Eladio Ch MD; No Primary Care Physician Senior Boiler Operator: Signed Normal [facility] Absolute lymphocyte countOrd ered By: Eladio Ch on 03-16-2025 Lymphocytes Auto (Unsp spec) [#/Vol] 1.81 10*3/uL 0.83-4.51 [facility] Absolute neutrophil countOrd ered By: Eladio Ch on 03-16-2025 Neutrophils (Bld) [#/Vol] 8.6 10*3/uL High 2.0-7.7 [facility] Anion gap in Serum or Plasma Ordered By: Eladio Ch on 03-16-2025 Anion gap [Moles/Vol] 11 mmol/L 5-15 [facility] Automated lymphocyte count a s percentage of total leukocytesOrdered By: Eladio Ch on 03-16-2025 Lymphocytes/100 WBC Auto (Unsp spec) 16.1 % Low 19-41 [facility] BUN/creatinine ratioOrdered By: Eladio Ch on 03-16-2025 Urea nitrogen/Creatinine [Mass ratio] 21.9 mg/mg High 10-20 [facility] Basophil percentageOrdered B y: Eladio Ch on 03-16-2025 Basophils/100 WBC (Bld) 0.7 % 0-1 [facility] Bilirubin Test strip Ql (U)O rdered By: Eladio Ch on 03-16-2025 Bilirubin Ql (U) Negative Negative [facility] Bilirubin, totalOrdered By: Eladio Ch on 03-16-2025 Bilirubin [Mass/Vol] 2.04 mg/dL High 0.00-1.30 [facility] CBC W/Diff, Automatedon 02-26 Absolute Lymph 1.81 X10 3/uL Normal 0.83-4.51 [facility] Comment on above: Performed By: #### L 100.0100 #### [facility] [address] [place], [address] Absolute Neut 8.6 X10 3/uL High 2.0-7.7 [facility] Comment on above: Performed By: #### L 100.0100 #### [facility] [address] [place], [address] Basophils/100 WBC (Bld) 0.7 % Normal 0-1 [facility] Comment on above: Performed By: #### L 100.0100 #### [facility] [address] [place], [address] Eosinophils/100 WBC (Bld) 1.1 % Normal 0-5 [facility] Comment on above: Performed By: #### L 100.0100 #### [facility] [address] [place], [address] Erythrocyte distribution width (RBC) [Ratio] 12.6 % Normal 11.6-14.6 [facility] Comment on above: Performed By: #### L 100.0100 #### [facility] [address] [place], [address] Hematocrit (Bld) [Volume fraction] 39.3 % Low 40-54 [facility] Comment on above: Performed By: #### L 100.0100 #### [facility] [address] [place], [address] Hemoglobin (Bld) [Mass/Vol] 13.4 g/dL Normal 13.0-16.5 [facility] Comment on above: Performed By: #### L 100.0100 #### [facility] [address] [place], [address] IG% 0.400 Normal 0.0-0.9 [facility] Comment on above: Result Comment: IG% - Immature Granulocytes (promyelocytes, myelocytes and metamyelocytes) > 1% indicates that a LEFT SHIFT is Present. Performed By: #### L 100.0100 #### [facility] [address] [place], [address] Lymphocytes/100 WBC (Bld) 16.1 % Low 19-41 [facility] Comment on above: Performed By: #### L 100.0100 #### [facility] [address] [place], [address] MCH (RBC) [Entitic mass] 30.4 pg Normal 27.0-32.0 [facility] Comment on above: Performed By: #### L 100.0100 #### [facility] [address] [place], [address] MCHC (RBC) [Mass/Vol] 34.1 g/dL Normal 32-36 [facility] Comment on above: Performed By: #### L 100.0100 #### [facility] [address] [place], [address] MCV (RBC) [Entitic vol] 89.1 fL Normal 80-94 [facility] Comment on above: Performed By: #### L 100.0100 #### [facility] [address] [place], [address] Monocytes/100 WBC (Bld) 5.2 % Normal 0-10 [facility] Comment on above: Performed By: #### L 100.0100 #### [facility] [address] [place], [address] Neutrophils/100 WBC (Bld) 76.5 % High 47-70 [facility] Comment on above: Performed By: #### L 100.0100 #### [facility] [address] [place], [address] Nucleated RBC (Bld) [#/Vol] 0 10*3/uL Normal 0-5 [facility] Comment on above: Performed By: #### L 100.0100 #### [facility] [address] [place], [address] Platelet mean volume (Bld) [Entitic vol] 9.0 fL Normal 6.2-12.0 [facility] Comment on above: Performed By: #### L 100.0100 #### [facility] [address] [place], [address] Platelets (Bld) [#/Vol] 174 10*3/uL Normal 150-450 [facility] Comment on above: Performed By: #### L 100.0100 #### [facility] [address] [place], [address] RBC (Bld) [#/Vol] 4.41 10*6/uL Low 4.6-6.2 [facility] Comment on above: Performed By: #### L 100.0100 #### [facility] [address] [place], [address] RDW SD 41.1 fl Normal 35.1-43.9 [facility] Comment on above: Performed By: #### L 100.0100 #### [facility] [address] [place], [address] WBC (Bld) [#/Vol] 11.2 10*3/uL High 4.4-11.0 [facility] Comment on above: Performed By: #### L 100.0100 #### [facility] [address] [place], [address] Carbon dioxide, total [Moles /volume] in Central venous bloodOrdered By: Eladio Ch on 03-16-2025 CO2 [Moles/Vol] 27.9 mmol/L 21.0-32.0 [facility] Chloride assayOrdered By: Joseph Ch on 03-16-2025 Chloride [Moles/Vol] 102 mmol/L 98-108 [facility] Comprehensive Metabolic Prof ilon 03-16-2025 Albumin [Mass/Vol] 4.5 g/dL Normal 3.5-5.0 [facility] Comment on above: Performed By: #### L 501.2450, L500.4050 #### [facility] [address] [place], [address] Albumin/Globulin [Mass ratio] 1.9 {ratio} Normal 0.9-2.4 [facility] Comment on above: Performed By: #### L 501.2450, L500.4050 #### [facility] [address] [place], [address] ALK PHOS 70 U/L Normal 40-129 [facility] Comment on above: Performed By: #### L 501.2450, L500.4050 #### [facility] [address] [place], [address] ALT [Catalytic activity/Vol] 87 U/L High <=46 [facility] Comment on above: Performed By: #### L 501.2450, L500.4050 #### [facility] [address] [place], [address] AST [Catalytic activity/Vol] 72 U/L High <=37 [facility] Comment on above: Performed By: #### L 501.2450, L500.4050 #### [facility] [address] [place], [address] Bilirubin [Mass/Vol] 2.04 mg/dL High 0.00-1.30 [facility] Comment on above: Performed By: #### L 501.2450, L500.4050 #### [facility] [address] [place], [address] BUN/CRE 21.9 RATIO High 10-20 [facility] Comment on above: Performed By: #### L 501.2450, L500.4050 #### [facility] [address] [place], [address] Calcium [Mass/Vol] 9.7 mg/dL Normal 7.6-11.0 [facility] Comment on above: Performed By: #### L 501.2450, L500.4050 #### [facility] [address] [place], [address] Chloride [Moles/Vol] 102 mmol/L Normal 98-108 [facility] Comment on above: Performed By: #### L 501.2450, L500.4050 #### [facility] [address] [place], [address] CO2 [Moles/Vol] 27.9 mmol/L Normal 21.0-32.0 [facility] Comment on above: Performed By: #### L 501.2450, L500.4050 #### [facility] [address] [place], [address] Creatinine [Mass/Vol] 0.89 mg/dL Normal 0.70-1.20 [facility] Comment on above: Performed By: #### L 501.2450, L500.4050 #### [facility] [address] [place], [address] ECRCL 103.37 ml/min Normal 50-250 [facility] Comment on above: Performed By: #### L 501.2450, L500.4050 #### [facility] [address] [place], [address] GAP 11 Normal 5-15 [facility] Comment on above: Performed By: #### L 501.2450, L500.4050 #### [facility] [address] [place], [address] GFR/1.73 sq M.predicted among non-blacks MDRD (S/P/Bld) [Vol rate/Area] 121 mL/min/{1.73_m2} Normal >60 [facility] Comment on above: Result Comment: mL/m in/1.73m2 CKD-EPI Creatinine Equation (2020) Performed By: #### L 501.2450, L500.4050 #### [facility] [address] [place], [address] Globulin (S) [Mass/Vol] 2.4 g/dL Normal 2.2-4.2 [facility] Comment on above: Performed By: #### L 501.2450, L500.4050 #### [facility] [address] [place], [address] Glucose [Mass/Vol] 92 mg/dL Normal 70-99 [facility] Comment on above: Performed By: #### L 501.2450, L500.4050 #### [facility] [address] [place], [address] Potassium [Moles/Vol] 3.7 mmol/L Normal 3.3-5.1 [facility] Comment on above: Performed By: #### L 501.2450, L500.4050 #### [facility] [address] [place], [address] Sodium [Moles/Vol] 141 mmol/L Normal 133-145 [facility] Comment on above: Performed By: #### L 501.2450, L500.4050 #### [facility] [address] [place], [address] T PROT 6.9 g/dL Normal 5.9-8.4 [facility] Comment on above: Performed By: #### L 501.2450, L500.4050 #### [facility] [address] [place], [address] Urea nitrogen [Mass/Vol] 19 mg/dL Normal 4-19 [facility] Comment on above: Performed By: #### L 501.2450, L500.4050 #### [facility] [address] [place], [address] Emergency Department Summary on 03-16-2025 Emergency Department Summary [facility] Medical Records Department [address] [place] [address] Emergency Department Summary 03/16/25 MR#: [id number] Acct: [id number] Name: DOUGLAS HOLDEN Rep #: [id number] : 2000 25 From: Eladio Ch MD PCP: Care Physician,No Primary Status:REG ER Location: ED HPI HPI - GI History of Present Illness Chief Complaint: Abd Pain Narrative Narrative: 25-year-old male who denies significant past medical history presents with his mother because of right lower quadrant abdominal pain that began this morning at 6 AM, approximately 2 and half hours ago. It woke him from sleep. He describes it as both sharp and stabbing and sometimes dull and achy. Is worse with movement and improved by lying still. He denies any fevers or chills but did have an episode of nausea and vomiting. No dysuria or hematuria. However, over the last few weeks, he states that he would have right lower quadrant abdominal pain that would last for about a day and resolved. He may have had dark urine at that time, but it resolved. He runs/jogs frequently and states that he be comes dehydrated easily. He states that the episode that began at 6 AM this morning was a lot worse than previous episodes. He denies any problems with bowel movements. No diarrhea. [facility] Medical History Visit for suture removal Medical History no medical history Home Medications ???Medication ???Instructions ???Recorded ???Last Taken ???Type NK 08/27/24 Unknown History Allergy/AdvReac Type Severity Reaction Status Date / Time No Known Allergies Allergy Verified 03/16/25 08:07 Social History Smoking Status: Never smoker alcohol intake: never ROS ROS ED ROS Narrative Review of systems positive for right lower quadrant abdominal pain described as both sharp and stabbing and dull and achy. Positive nausea and vomiting this morning. Previous dark urine and intermittent episodes that lasted a day of right lower quadrant pain over the last few weeks. No problems with bowel movements, no diarrhea. No prior abdominal surgeries. Denies daily medications as well. EXAM Physical Exam Narrative Exam Narrative: Afebrile. Vital signs noted. Nontoxic-appearing. Cardiovascular examination reveals bradycardia at rest. Lungs are clear to auscultation bilaterally. The abdomen is soft with mild tenderness to palpation in the right lower quadrant of the abdomen. No guarding or rebound. Negative Rovsing sign, negative heel strike, no pain with flexion of right knee. Neurological examination nonfocal, nonlateralizing. Const Vital Signs: 03/16/25 08:05 03/16/25 08:07 03/16/25 10:15 Temperature 98.8 F 98.1 F 96.9 F L Temperature Source Oral Oral Oral Pulse Rate 54 L 49 L 45 L Respiratory Rate 16 18 16 Blood Pressure 136/96 H 122/71 H 111/64 Blood Pressure Mean 109 88 79 Pulse Ox 100 100 100 Oxygen Delivery Method Room Air Room Air Room Air 03/16/25 10:15 Temperature Temperature Source Pulse Rate 46 L Respiratory Rate 16 Blood Pressure 110/64 Blood Pressure Mean 79 Pulse Ox 99 Oxygen Delivery Method Room Air MDM MDM MDM Narrative Medical decision making narrative: The differential diagnosis includes but not limited to musculoskeletal abdominal pain versus acute appendicitis versus ureterolithiasis versus pyelonephritis. I have lower clinical suspicion for pyelonephritis as he is not having dysuria or hematuria, no fevers or chills. I do feel CT imaging is indicated. He was bolused normal saline 1 L intravenously and administered morphine and ondansetron for analgesia. Upon repeat examination, he is feeling improved. I reviewed his laboratory work and he has slight elevation of his white count at 11.2 which I think is nonspecific, hemoglobin 13.4, hematocrit 39.3. Platelet count normal at 174. CMP is significant for slightly elevated AST of 72 and ALT of 87 with total bili 2.0. I also find this nonspecific. Lipase normal at 26 so I doubt pancreatitis. Urinalysis is negative for infection with 0 WBCs and 0 RBCs, 0 bacteria. I do not feel antibiotics are indicated. I reviewed his CT report and the appendix appears normal. He does have hepatic congestion with prominence of portal vein triads. I do not feel he requires admission for this. I suggested follow-up with gastroenterology and/your primary care. Additionally, CT commented on inflammation around the prostate and thickened bladder wall. I do not feel he has a cystitis that requires antibiotics, and I discussed with him the possibility of prostatitis, but I do not think that is the cause of his right lower quadrant abdominal pain. In discussion with the patient, he i (more content not included)... Normal [facility] Eosinophil percentageOrdered By: Eladio Ch on 03-16-2025 Eosinophils/100 WBC (Bld) 1.1 % 0-5 [facility] Erythrocyte distribution wid th ratioOrdered By: Eladio Ch on 03-16-2025 Erythrocyte distribution width (RBC) [Ratio] 12.6 % 11.6-14.6 [facility] Erythrocyte distribution wid th standard deviationOrdered By: Eladio Ch on 03-16-2025 Erythrocyte distribution width (RBC) [Ratio] 41.1 fl 35.1-43.9 [facility] Glomerular filtration rate ( GFR) estimation/1.73 sq m using serum, plasma, or whole bOrdered By: Eladio Ch on 03-16-2025 GFR/1.73 sq M.predicted among non-blacks MDRD (S/P/Bld) [Vol rate/Area] 121 mL/min/{1.73_m2} >60 [facility] Comment on above: mL/min/1.73m2 CKD-EP I Creatinine Equation (2020) Hematocrit Auto (Bld) [Volum e fraction]Ordered By: Eladio Ch on 03-16-2025 Hematocrit (Bld) [Volume fraction] 39.3 % Low 40-54 [facility] Hemoglobin measurementOrdere d By: Eladio Ch on 03-16-2025 Hemoglobin (Bld) [Mass/Vol] 13.4 g/dL 13.0-16.5 [facility] Immature granulocytes/100 WB C Auto (Bld)Ordered By: Eladio Ch on 03-16-2025 Immature granulocytes/100 WBC (Bld) 0.400 % 0.0-0.9 [facility] Comment on above: IG% - Immature Granu locytes (promyelocytes, myelocytes and metamyelocytes) > 1% indicates that a LEFT SHIFT is Present. Ketones Test strip Ql (U)Ord ered By: Eladio Ch on 03-16-2025 Ketones Ql (U) Negative Negative [facility] - Chemistry and C hemistry - challengeOrdered By: Eladio Ch on 03-16-2025 AST [Catalytic activity/Vol] 72 U/L High <38 [facility] Lipaseon 03-16-2025 Lipase [Catalytic activity/Vol] 26 U/L Normal 13-75 [facility] Comment on above: Result Comment: Solo tobar note: LIPASE revised reference range effective 22. New Lipase methodology. Expected to produce lower values than the previous assay method. NEW Reference Range: 13 - 75 U/L Performed By: #### L 501.2450, L500.4050 #### [facility] [address] [place] [address], [address] Lipase measurementOrdered By : Eladio Ch on 03-16-2025 Lipase [Catalytic activity/Vol] 26 U/L 13-75 [facility] Comment on above: Please note:LIPASE r evised reference range effective 22. New Lipase methodology. Expected to produce lower values than the previous assay method. NEW Reference Range: 13 - 75 U/L MCV (mean corpuscular volume ) determinationOrdered By: Eladio Ch on 03-16-2025 MCV (RBC) [Entitic vol] 89.1 fL 80-94 [facility] Mean corpuscular hemoglobin (MCH) determinationOrdered By: Eladio Ch on 03-16-2025 MCH (RBC) [Entitic mass] 30.4 pg 27.0-32.0 [facility] Mean corpuscular hemoglobin concentration (MCHC) determinationOrdered By: Eladio Ch on 03-16-2025 MCHC (RBC) [Mass/Vol] 34.1 g/dL 32-36 [facility] Mean platelet volume determi nationOrdered By: Eladio Ch on 03-16-2025 Platelet mean volume (Bld) [Entitic vol] 9.0 fL 6.2-12.0 [facility] Microscopic analysis of urin e for red blood cells (RBC)Ordered By: Eladio Ch on 03-16-2025 Microscopic analysis of urine for red blood cells (RBC) 0 SEEN /hpf 0-5 [facility] Monocyte percentageOrdered B y: Eladio Ch on 03-16-2025 Monocytes/100 WBC (Bld) 5.2 % 0-10 [facility] Mucus LM Ql (Urine sed)Order ed By: Eladio Ch on 03-16-2025 Mucus Ql (Urine sed) 0 SEEN /hpf [facility] Neutrophil percentageOrdered By: Eladio Ch on 03-16-2025 Neutrophils/100 WBC (Bld) 76.5 % High 47-70 [facility] Nitrite Test strip Ql (U)Ord ered By: Eladio Ch on 03-16-2025 Nitrite Ql (U) Negative Negative [facility] Nucleated red blood cell per centageOrdered By: Eladio Ch on 03-16-2025 Nucleated RBC/100 WBC (Bld) [Ratio] 0 % 0-5 [facility] Platelet countOrdered By: Joseph Ch on 03-16-2025 Platelets (Bld) [#/Vol] 174 10*3/uL 150-450 [facility] Potassium measurement (mass/ volume)Ordered By: Eladio Ch on 03-16-2025 Potassium (Unsp spec) [Mass/Vol] 3.7 mmol/L 3.3-5.1 [facility] Protein Test strip Ql (U)Ord ered By: Eladio Ch on 03-16-2025 Protein Ql (U) 30 mg/dl High Negative [facility] RBC Auto (Bld) [#/Vol]Ordere d By: Eladio Ch on 03-16-2025 RBC (Bld) [#/Vol] 4.41 10*6/uL Low 4.6-6.2 [facility] Serum creatinine measurement (mass/volume)Ordered By: Eladio Ch on 03-16-2025 Creatinine [Mass/Vol] 0.89 mg/dL 0.70-1.20 [facility] Serum globulin measurementOr dered By: Eladio Ch on 03-16-2025 Globulin (S) [Mass/Vol] 2.4 g/dL 2.2-4.2 [facility] Serum glucose measurement (m ass/volume)Ordered By: Eladio Ch on 03-16-2025 Glucose [Mass/Vol] 92 mg/dL 70-99 [facility] Serum or plasma alanine frausto otransferase (ALT) measurementOrdered By: Eladio Ch on 03-16-2025 ALT [Catalytic activity/Vol] 87 U/L High <47 [facility] Serum or plasma albumin doris urement (mass/volume)Ordered By: Eladio hC on 03-16-2025 Albumin [Mass/Vol] 4.5 g/dL 3.5-5.0 [facility] Serum or plasma albumin/glob ulin mass ratioOrdered By: Eladio Ch on 03-16-2025 Albumin/Globulin [Mass ratio] 1.9 {ratio} 0.9-2.4 [facility] Serum or plasma alkaline arthur sphatase measurementOrdered By: Eladio Ch on 03-16-2025 ALP [Catalytic activity/Vol] 70 U/L 40-129 [facility] Serum or plasma calcium doris urement (mass/volume)Ordered By: Eladio Ch on 03-16-2025 Calcium [Mass/Vol] 9.7 mg/dL 7.6-11.0 [facility] Serum or plasma urea nitroge n measurement (mass/volume)Ordered By: Eladio Ch on 03-16-2025 Urea nitrogen [Mass/Vol] 19 mg/dL 4-19 [facility] Sodium levelOrdered By: Eladio Ch on 03-16-2025 Sodium [Moles/Vol] 141 mmol/L 133-145 [facility] Squamous epithelial cells de tection in urine sediment by light microscopyOrdered By: Eladio Ch on 03-16-2025 Epithelial cells.squamous LM Ql (Urine sed) 0 SEEN /hpf 0-5 [facility] Total proteinOrdered By: Margareth Ch on 03-16-2025 Protein [Mass/Vol] 6.9 g/dL 5.9-8.4 [facility] Urinalysis, Completeon 03-16 BACTERIA 0 SEEN Normal None Seen [facility] Comment on above: Order Comment: CLEAN CATCH Performed By: #### L 400.0001 #### [facility] [address] [place], [address] EPI,SQUAMOUS 0 SEEN Normal 0-5 [facility] Comment on above: Order Comment: CLEAN CATCH Performed By: #### L 400.0001 #### [facility] [address] [place], [address] Mucus Ql (Urine sed) 0 SEEN Normal [facility] Comment on above: Order Comment: CLEAN CATCH Performed By: #### L 400.0001 #### [facility] [address] [place], [address] RBC 0 SEEN Normal 0-5 [facility] Comment on above: Order Comment: CLEAN CATCH Performed By: #### L 400.0001 #### [facility] [address] [place], [address] WBC 0 SEEN Normal 0-5 [facility] Comment on above: Order Comment: CLEAN CATCH Performed By: #### L 400.0001 #### [facility] [address] [place], [address] Urine clarityOrdered By: Margareth Ch on 03-16-2025 Clarity (U) Clear Clear [facility] Urine color determinationOrd ered By: Eladio Ch on 03-16-2025 Color (U) Yellow Yellow [facility] Urine glucose detectionOrder ed By: Eladio Ch on 03-16-2025 Glucose Ql (U) Normal mg/dl Normal [facility] Urine leukocyte esterase det ection by dipstickOrdered By: Eladio Ch on 03-16-2025 Leukocyte esterase Test strip Ql (U) Negative Negative [facility] Urine pHOrdered By: Eladio todd on 03-16-2025 pH (U) 6.5 [pH] 5.0 - 8.0 [facility] Urine sediment bacteria coun t by microscopy (number/high power field)Ordered By: Eladio Ch on 03-16-2025 Bacteria LM.HPF (Urine sed) [#/Area] 0 /[HPF] None Seen [facility] Urine specific gravity measu rementOrdered By: Eladio Jing on 03-16-2025 Specific gravity (U) [Rel density] 1.010 1.002-1.030 [facility] Urine urobilinogen measureme ntOrdered By: Eladio Wongtorito on 03-16-2025 Urobilinogen Ql (U) Normal mg/dl Normal [facility] White blood cell (WBC) count Ordered By: Eladio Ch on 03-16-2025 WBC (Bld) [#/Vol] 11.2 10*3/uL High 4.4-11.0 [facility] White blood cell countOrdere d By: Eladio Ch on 03-16-2025 White blood cell count 0 SEEN /hpf 0-5 [facility] Urgent Care Visit Reporton 0 09-02-2024 Urgent Care Visit Report [facility] [address], [address] [place] [address] OFFICE VISIT Date of Service: 09/02/24 MR#: [id number] Acct: [id number] Name: DOUGLAS HOLDEN Rep #: [id number] : 2000 Provider: ANKUR Paul Age/Sex: 24/M Location: [facility] Status: Signed Intake Vital Signs 08/27/24 22:32 [...] the ER. 6 stitches removed at the [facility] and cleaned, [facility] Medical History (Updated 09/02/24 @ 09:04 by [...] would be fine. 09/02/24 0904 Date Michael Anderson Signature: Date (if applicable) CC: Normal [facility] Emergency Department Summary on 08-27-2024 Emergency Department Summary [facility] Medical Records Department [address] [place] [address] Emergency Department Summary 08/27/24 MR#: [id number] Acct: [id number] Name: DOUGLAS HOLDEN Rep #: [id number] : 2000 From: Alireza Hernandez DO PCP: [...] Primary [Primary Care Provider] - Print Language: Guyanese Disposition Disposition: Home, Self Care What to do if you have Problems For any increased pain, shortness of breath, bleedi (more content not included)... Normal [facility] Vital Signs Date Time Vital Sign Value Performing Clinician Abilio joseph 03-16-2025 11:46-0400 Body temperature 97.1 [degF] No Primary Care Physician [facility] 03-16-2025 11:46-0400 Diastolic blood pressure 65 mm[Hg] No Primary Care Physician [facility] 03-16-2025 11:46-0400 Heart rate 43 /min No Primary Care Physician [facility] 03-16-2025 11:46-0400 Respiratory rate 16 /min No Primary Care Physician [facility] 03-16-2025 11:46-0400 SaO2% (BldA) [Mass fraction] 100 % No Primary Care Physician [facility] 03-16-2025 11:46-0400 Systolic blood pressure 112 mm[Hg] No Primary Care Physician [facility] 03-16-2025 08:05-0400 Body height 175.26 cm No Primary Care Physician [facility] 03-16-2025 08:05-0400 Body mass index (BMI) [Ratio] 18.9 kg/m2 No Primary Care Physician [facility] 03-16-2025 08:05-0400 Body weight 58.1 kg No Primary Care Physician [facility] Encounters Encounter Date Encounter Type Care Provider Facility Start: 03-16-2025 End: 03-16-2025 Emergency department patient visit No Primary Care Physician -Emergency Department Work Phone: Start: 09-02-2024 End: 09-02-2024 ambulatory No Primary Care Physician Facility:[facility] Start: 08-27-2024 End: 08-28-2024 Emergency department patient visit Alireza Hernandez Facility:[facility] Procedures Date Procedure Procedure Detail Performing Clinician Start: 03-16-2025 Urnls dip stick/tabl et reagent auto microscopy No Primary Care Physician Start: 03-16-2025 Estimated creatinine clearance No Primary Care Physician Start: 03-16-2025 Computed tomography of abdomen and pelvis with intravenous contrast No Primary Care Physician Plan of Treatment Date Care Activity Detail Author Start: 03-16-2025 [facility] Patient Education ED Abdominal P ain Unkn Cause Male... [facility] Work Phone: Payers Date Payer Category Payer Self-pay 2024 Unknown [id number] Unknown [id number] Unknown [id number] Unknown [id number] Social History Date Type Detail Facility Start: 03-16-2025 Tobacco smoking stat us MOIS Never smoked tobacco (finding) [facility] Start: 2000 Sex Assigned At Male [facility] Discharge summary 03-16-2025 Note Date & Type Note Facility 03-16-2025 Discharge summary [facility] Radiology Diagnostic study note 03-16-2025 Note Date & Type Note Facility 03-16-2025 Radiology Diagnostic study note [facility] Imaging Services [address] [place] [address] Abdomen/Pelvis W IV Cont ONLY MR#: [id number] Acct: [id number] Name: DOUGLAS HOLDEN Rep #: [id number] : 2000 M 25 From: Anthony Neville MD PCP: Care Physician,No Primary Status: REG ER Study:Abdomen/Pelvis W IV Cont ONLY Date of E xam: 03/16/25 Exam# [id number] Ordering Dr: Eladio Ch MD PROCEDURE: ABDOMEN/PELVIS W IV CONT ONLY 03/16/2025 REASON FOR EXAM: RIGHT LOWER QUADRANT PAIN Two-month history are nausea and vomiting. TECHNIQUE: ABDOMEN/PELVIS W IV CONT ONLY Coronal and Sagittal reconstruction series were provided. CONTRAST: Isovue 370 VOLUME: 100 mL One or more dose reduction techniques were used (e.g., Automated exposure control, adjustment of the mA and/or kV according to patient size, use of iterative reconstruction technique. RADIATION DOSE SUMMARY: CTDlvol: 13.25 mGy DLP: 352.41 mGycm COMPARISON: None FINDINGS: Lung bases: Lung bases are clear. Liver: There is evidence of hepatic congestion with prominence of the portal venous triads. Gallbladder: Unremarkable Spleen: Normal size. Pancreas: Normal size without evidence of mass surrounding inflammation or ductal dilation. Adrenals: Unremarkable Kidneys: Normal renal sizes. No hydronephrosis. Bladder: Bladder wall thickening. Distended urinary bladder. Findings suggestive of inflammatory changes in the region of the prostate. Clinical correlation recommended. The seminal vesicles are enlarged. Bowel: Unremarkable Appendix: Unremarkable Lymph nodes: Unremarkable. Vasculature: The inferior vena cava is distended. Peritoneum / Retroperitoneum: Unremarkable Bones: Unremarkable CT/Abdomen/Pelvis W IV Cont ONLY IMPRESSION: Hepatic congestion with prominence of the portal venous triads. Distended inferior vena cava. Bladder wall thickening. Findings suggestive of inflammatory changes surrounding the prostate with prominence of the seminal vesicles. Reading Location: [id number] CC: Dr. Eladio Ch MD; No Primary Care Physician ~ Senior Boiler Operator: Signed [facility] Discharge instructions 03-16-2025 Note Date & Type Note Facility 03-16-2025 Hospital Discharg e instructions Additional Instructions You had abnormal liver function test today. These should be rechecked in the future. Follow-up with your primary care provider or gastroenterology, Dr. Carreon in 1 to 2 weeks. Return to the emergency department with fever, increased pain, new or worsening symptoms. You should follow-up with a primary care provider as well. [facility] Work Phone: Discharge summary Note Date & Type Note Facility Discharge summary Note Date/Time March 16, 2025 11:31am [facility] Medical Records Department [address] [place] [address] Emergency Department Summary 03/16/25 MR#: [id number] Acct: [id number] Name: DOUGLAS HOLDEN Rep #: [id number] : 2000 25 From: Eladio Ch MD PCP: Care Physician,No Primary Status :REG ER Location: ED HPI HPI - GI History of Present Illness Chief Complaint: Abd Pain Narrative Narrative: 25-year-old male who denies significant past medical history presents with his mother because of right lower quadrant abdominal pain that began this morning at6 AM, approximately 2 and half hours ago. It woke him from sleep. He describesit as both sharp and stabbing and sometimes dull and achy. Is worse with movement and improved by lying still. He denies any fevers or chills but did have an episode of nausea and vomiting. No dysuria or hematuria. However, overthe last few weeks, he states that he would have right lower quadrant abdominal pain that would last for about a day and resolved. He may have had dark urine at that time, but it resolved. He runs/jogs frequently and states that he be comes dehydrated easily. He states that the episode that began at 6 AM this morning was a lot worse than previous episodes. He denies any problems with bowel movements. No diarrhea. [facility] Medical History Visit for suture removal Medical History no medical history Home Medications ?Medication ?Instructions ?Recorded ?Last Taken ?Type NK 08/27/24 Unknown History Allergy/AdvReac Type Severity Reaction Status Date / Time No Known Allergies Allergy Verified 03/16/25 08:07 Social History Smoking Status: Never smoker alcohol intake: never ROS ROS ED ROS Narrative Review of systems positive for right lower quadrant abdominal pain described as both sharp and stabbing and dull and achy. Positive nausea and vomiting this morning. Previous dark urine and intermittent episodes that lasted a day of right lower quadrant pain over the last few weeks. No problems with bowel movements, no diarrhea. No prior abdominal surgeries. Denies daily medicationsas well. EXAM Physical Exam Narrative Exam Narrative: Afebrile. Vital signs noted. Nontoxic-appearing. Cardiovascular examination reveals bradycardia at rest. Lungs are clear to auscultation bilaterally. The abdomen is soft with mild tenderness to palpation in the right lower quadrant ofthe abdomen. No guarding or rebound. Negative Rovsing sign, negative heel strike, no pain with flexion of right knee. Neurological examination nonfocal, nonlateralizing. Const Vital Signs: 03/16/25 08:05 03/16/25 08:07 03/16/25 10:15 Temperature 98.8 F 98.1 F 96.9 F L Temperature Source Oral Oral Oral Pulse Rate 54 L 49 L 45 L Respiratory Rate 16 18 16 Blood Pressure 136/96 H 122/71 H 111/64 Blood Pressure Mean 109 88 79 Pulse Ox 100 100 100 Oxygen Delivery Method Room Air Room Air Room Air 03/16/25 10:15 Temperature Temperature Source Pulse Rate 46 L Respiratory Rate 16 Blood Pressure 110/64 Blood Pressure Mean 79 Pulse Ox 99 Oxygen Delivery Method Room Air MDM MDM MDM Narrative Medical decision making narrative: The differential diagnosis includes but not limited to musculoskeletal abdominalpain versus acute appendicitis versus ureterolithiasis versus pyelonephritis. Ihave lower clinical suspicion for pyelonephritis as he is not having dysuria or hematuria, no fevers or chills. I do feel CT imaging is indicated. He was bolused normal saline 1 L intravenously and administered morphine and ondansetron for analgesia. Upon repeat examination, he is feeling improved. I reviewed his laboratory workand he has slight elevation of his white count at 11.2 which I think is nonspecific, hemoglobin 13.4, hematocrit 39.3. Platelet count normal at 174. CMP is significant for slightly elevated AST of 72 and ALT of 87 with total bili2.0. I also find this nonspecific. Lipase normal at 26 so I doubt pancreatitis. Urinalysis is negative for infection with 0 WBCs and 0 RBCs, 0 bacteria. I do not feel antibiotics are indicated. I reviewed his CT report and the appendix appears normal. He does have hepatic congestion with prominence of portal vein triads. I do not feel he requires admission for this. I suggested follow-up with gastroenterology and/your primary care. Additionally, CT commented on inflammation around the prostate and thickened bladder wall. I do not feel he has a cystitis that requires antibiotics, and I discussed with him the possibility of prostatitis, but I do not think that is the cause of his right lower quadrant abdominal pain. In discussion with the patient, he is declining rectal examination and he is not having any symptoms of prostatitis, so I discussed return instructions with him in follow-up. I feel he can be discharged safely home. Patient and mother are agreeable to the plan. Disposition is discharged home in stable condition. History & Record Review Discussion w/independent historian: Patient and Family (Mother) Additional record(s) reviewed:: Prior ED visit (Previously seen for facial laceration, noncontributory to current chief complaint.) Lab Data Attestation: I reviewed the patient's lab results. Labs: Laboratory Results - last 24 hr 03/16/25 03/16/25 08:57 10:47 WBC 11.2 H RBC 4.41 L Hgb 13.4 Hct 39.3 L MCV 89.1 MCH 30.4 MCHC 34.1 RDW Std Deviation 41.1 RDW Coeff of Essence 12.6 Plt Count 174 MPV 9.0 Immature Gran % (Auto) 0.400 Neut % (Auto) 76.5 H Lymph % (Auto) 16.1 L [place] % (Auto) 5.2 Eos % (Auto) 1.1 Baso % (Auto) 0.7 Absolute Neuts (auto) 8.6 H Absolute Lymphs (auto) 1.81 Nucleated RBC % 0 Sodium 141 Potassium 3.7 Chloride 102 Carbon Dioxide 27.9 Anion Gap 11 BUN 19 Creatinine 0.89 Estim Creat Clear Calc 103.37 Est GFR (MDRD) Non-Af 121 BUN/Creatinine Ratio 21.9 H Glucose 92 Calcium 9.7 Total Bilirubin 2.04 H AST 72 H ALT 87 H Alkaline Phosphatase 70 Total Protein 6.9 Albumin 4.5 Globulin 2.4 Albumin/Globulin Ratio 1.9 Lipase 26 Urine Color Yellow Urine Clarity Clear Urine pH 6.5 Ur Specific Biddle 1.010 Urine Protein 30 H Urine Glucose (UA) Normal Urine Ketones Negative Urine Occult Blood 250 H Urine Nitrite Negative Urine Bilirubin Negative Urine Urobilinogen Normal Ur Leukocyte Esterase Negative Urine RBC 0 SEEN Urine WBC 0 SEEN Ur Squamous Epith Cells 0 SEEN Urine Bacteria 0 SEEN Urine Mucus 0 SEEN Radiography Diagnostic Testing: Clinical Impression(s) from Imaging Studies Abdomen/Pelvis CT 03/16/25 08:34 IMPRESSION: Hepatic congestion with prominence of the portal venous triads. Distended inferior vena cava. Bladder wall thickening. Findings suggestive of inflammatory changes surrounding the prostate with prominence of the seminal vesicles. Reading Location: [facility] Discharge Plan Triage Chief Complaint: Abd Pain ED Provider: Eladio Ch Dx/Rx/DC Orders Clinical Impression: Abdominal pain, acute, right lower quadrant, Elevated LFTs Instructions: ED Abdominal Pain Unkn Cause Male... Prescriptions: No Action NK Primary Care Provider: Care Physician,No Primary Referrals: Bradley Burkett MD [Med Staff - Active Staff] - As soon as possible Friend,DO Lazaro [Med Staff - Active Staff] - 1-2 Weeks Care Physician,No Primary [Primary Care Provider] - Activity Restrictions/Additional Instructions: You had abnormal liver function test today. These should be rechecked in the future. Follow-up with your primary care provider or gastroenterology, Dr. Carreon in 1 to 2 weeks. Return to the emergency department with fever, increased pain, new or worsening symptoms. You should follow-up with a primary care provider as well. Print Language: Guyanese Disposition Disposition: Home, Self Care What to do if you have Problems For any increased pain, shortness of breath, bleeding, nausea or vomiting, chestpain, or any unexpected problems, contact your Primary Care Provider. Call [facility] ([phone]) or report to the closest Emergency Room. Call 911 if necessary. 03/16/25 1131 <Electronically signed by Eladio Ch MD> Cosigner Signature (if applicable): CC: No Primary Care Physician ~ Signed [facility] Work Phone: Evaluation note Note Date & Type Note Facility Evaluation note No assessment information availa ble [facility] Work Phone: Reason for referral (narrative) Note Date & Type Note Facility Reason for referral (narrative) No reason for referral information available [facility] Work Phone: Chief Complaint and Reason for Visit Chief Complaint Admit Date ABD PAIN March 16, 2025 8: 04am Advance Directives No Advanced Directives Records Found Advance Directive Response Recorded Date/ Time Do you have a Healthcare Power of Box Lidder? No March 16, 2025 8:11am Summary Purpose Family History No Family History Records Found Additional Source Comments Care Teams (unrecognized sec tion and content) Team Status: Active Member Role/Relationship Status Dates No Primary Care Physician Primary Care Provider Active Team Status: Inactive Member Role/Relationship Status Dates No Primary Care Physician Primary Care Provider Active Start: March 16, 2025 End: March 16, 2025 Eladio Ch MD Emergency Provider Active Star t: March 16, 2025 End: March 16, 2025 Goals (unrecognized section and content) Goals may be documented in a n alternate section (unrecognized sect ion and content) No Status Records Found INFORMATION SOURCE (unrecogn ized section and content) DATE CREATED AUTHOR 03/23/2025 [facility] FOR RECORDS PERTAINING TO PATIENTS WHO ARE [...] BE BASED ON THE PRIMARY CLINICAL RECORDS. [facility]. provides no warranty or guarantee of the accuracy or completeness of information in this document.
[2025-04-13 09:26] LABS: CPK Total, Creatine Kinase 368 U/L (24-195)
[2025-04-13 09:30] LABS: AST(SGOT) 57 U/L (<=37); Alanine Aminotransfer ALT/SGPT 86 U/L (<=46); Albumin, Serum 5.2 g/dL (3.5-5.0); Alkaline Phosphatase 78 U/L (40-129); Anion Gap 14 (5-15); BUN 18 mg/dL (4-19); BUN/Creat Ratio 17.3 RATIO (10-20); Bilirubin, Direct 0.90 mg/dL (0.00-0.30); Calcium,Total 10.3 mg/dL (7.6-11.0); Carbon Dioxide 25.0 mmol/L (21.0-32.0); Chloride 102 mmol/L (98-108); Estimated Creatinine Clearance 90.24 ml/min (50-250); Globulin 2.9 g/dL (2.2-4.2); Glucose 110 mg/dL (70-99); Potassium 4.4 mmol/L (3.3-5.1)
--- NOTE | 2025-04-13 09:40 | CM.ED ---
Social work Reason for referral: no PCP Referral source: case find SW identified patient's lack of PCP and need for resources. SW entered patient's room, identifying self and role at [facility]. Patient's mother, Ninfa, at bedside; patient gave permission to speak in front of Ninfa. Patient confirmed lack of PCP and accepted resources of [facility] Provider Directory and Alyssa More information. Patient denied further needs at this time. Ara Pimentel, PLASTIC PRINTER, UNDERCOLLAR MAKER
[2025-04-13 10:17] LABS: Squamous Epithelial Cells - UA 0 SEEN /hpf (0-5)
[2025-04-13 10:18] LABS: Color, Urine Yellow (Yellow); Glucose, Dipstick Normal (Normal); Ketone-Dipstick 15 mg/dl (Negative); Leukocyte Esterase-Dipstick 25 /ul (Negative); Nitrite-Dipstick Negative (Negative); Occult Blood-Urine 150 /ul (Negative); Protein-Dipstick 100 mg/dl (Negative); Specific Gravity, Urine 1.025 (1.002-1.030); Urine Bilirubin Dipstick Negative (Negative)
[2025-04-13 10:29] LABS: Red Blood Cells-Urine 10-25 SEEN /hpf (0-5)
[2025-04-13 10:35] LABS: Mucous, Urine 2+ /hpf (<or=2+)
[2025-04-13] MEDS: HYDROmorphone 0.5 MG/0.5 ML SYRINGE IV (13:35)
== END 2025-04-13 15:05 | disposition home or self-care (01) ==
PROVIDERS: Emergency Provider Emergency Medicine; Visit Provider Emergency Medicine
DX: N13.2 Hydronephrosis with renal and ureteral calculous obstruction (principal); K76.6 Portal hypertension; N23 Unspecified renal colic; R11.2 Nausea with vomiting, unspecified
CPT/HCPCS: 74177; 80048; 80076; 81001; 82550; 85025; 96361; 96374; 96375; 96376; 99282; Q9967; A4216; J2405

== ENCOUNTER 2025-04-16 11:09 | Outpatient (CLI) | payer OTHER, SELFPAY ==
--- NOTE | 2025-04-16 11:14 | ECHOD_ITS ---
Reason For Study Reason For Study: Arrythmia Procedure This was a 2D Doppler, Color Flow transthoracic echocardiogram. Exam performed in department. Left Ventricle Normal LV size. Left ventricular systolic function is normal. The left ventricular ejection fraction is 55 %. Normal diastology for age. Right Ventricle Normal RV size. Normal systolic function. Atria Normal left atrium. Normal right atrium. Mitral Valve Normal mitral valve. Tricuspid Valve Normal tricuspid valve. Aortic Valve Normal aortic valve. Trisinus/trileaflet aortic valve. Pulmonic Valve Normal pulmonic valve. Great Vessels Normal aortic root. The pulmonary artery is normal size. Inferior vena cava collapse with respiration. Pericardium/Pleural No pericardial effusion. MMode/2D Measurements & Calculations LVIDd: 4.2 cm IVSd: 0.88 cm LAV(MOD-sp4): 33.0 ml LVIDs: 3.1 cm LVPWd: 1.2 cm FS: 26.0 % LVAd ap4: 25.5 cm2 SV(MOD-sp4): 34.1 ml SV(sp4-el): 36.3 ml LVLd ap4: 7.7 cm SI(MOD-sp4): 20.1 ml/m2 EDV(MOD-sp4): 68.0 ml EDV(sp4-el): 71.3 ml LVAs ap4: 16.5 cm2 LVLs ap4: 6.6 cm ESV(MOD-sp4): 33.9 ml ESV(sp4-el): 35.0 ml EF(MOD-sp4): 50.1 % EF(sp4-el): 50.9 % LA A4 area: 15.5 cm2 LA dimension(2D): 3.0 cm RA A4 area: 13.6 cm2 Time Measurements MV dec time: 0.18 sec Doppler Measurements & Calculations MV E max uri: 106.3 cm/sec Lat Peak E' Uri: 20.3 cm/sec Med Peak E' Uri: 11.3 cm/sec MV A max uri: 60.3 cm/sec E/E' lat: 5.2 E/E' med: 9.4 MV E/A: 1.8 MV V2 max: 140.6 cm/sec Ao V2 max: 104.6 cm/sec MV max P.9 mmHg MV dec slope: 586.1 cm/sec2 Ao max P.4 mmHg MV V2 mean: 72.0 cm/sec Ao V2 mean: 61.0 cm/sec MV mean P.5 mmHg Ao mean P.9 mmHg MV V2 VTI: 33.8 cm Ao V2 VTI: 22.5 cm AV (velocity ratio): 1.2 LV V1 max: 126.2 cm/sec PA V2 max: 104.4 cm/sec LV V1 max P.4 mmHg PA V2 mean: 73.3 cm/sec LV V1 mean P.1 mmHg LV V1 mean: 81.2 cm/sec LV V1 VTI: 26.9 cm ECHO/Echo Complete Interpretation Summary Normal LV size. Left ventricular systolic function is normal. The left ventricular ejection fraction is 55 %. Structurally normal valves. Ordering Physician: Jeanie Oden Referring Physician: Jeanie Oden Performed By: Imani Warner RCS
== END 2025-04-16 23:59 | disposition home or self-care (01) ==
LOC: CVS 11:11
PROVIDERS: Referring Provider Emergency Medicine; Visit Provider Emergency Medicine
DX: I49.9 Cardiac arrhythmia, unspecified (principal)
CPT/HCPCS: 93306

== ENCOUNTER → 2025-05-03 | Outpatient (CLI) | payer OTHER, SELFPAY ==
[2025-05-03 11:53] LABS: Mucous, Urine 0 SEEN /hpf (<or=2+); Squamous Epithelial Cells - UA 0 SEEN /hpf (0-5)
[2025-05-03 15:18] LABS: Color, Urine Yellow (Yellow); Glucose, Dipstick Normal (Normal); Ketone-Dipstick Negative (Negative); Leukocyte Esterase-Dipstick Negative /ul (Negative); Nitrite-Dipstick Negative (Negative); Occult Blood-Urine 10 /ul (Negative); Protein-Dipstick 15 mg/dl (Negative); Specific Gravity, Urine 1.015 (1.002-1.030); Urine Bilirubin Dipstick Negative (Negative)
[2025-05-03 15:19] LABS: Hematocrit 41.0 % (40-54); Hemoglobin 13.7 g/dL (13.0-16.5); Immature Granulocytes Count 0.010 X10^3/uL (0.0-0.0); Mean Corp Hgb Conc 33.4 g/dL (32-36); Mean Corpuscular Volume 89.9 fL (80-94); Mean Platelet Vol. 10.1 fl (6.2-12.0); NRBC Flagged by Analyzer 0 % (0-5); Platelet Count 218 K/mm3 (150-450); RBC Distribution Width CV 12.8 % (11.6-14.6); RBC Distribution Width SD 41.9 fl (35.1-43.9); Red Blood Count 4.56 M/mm3 (4.6-6.2); White Blood Count 5.4 K/mm3 (4.4-11.0)
[2025-05-03 15:25] LABS: Red Blood Cells-Urine 5-10 SEEN /hpf (0-5)
[2025-05-03 15:42] LABS: AST(SGOT) 33 U/L (<=37); Alanine Aminotransfer ALT/SGPT 51 U/L (<=46); Albumin, Serum 4.4 g/dL (3.5-5.0); Alkaline Phosphatase 63 U/L (40-129); Anion Gap 11 (5-15); BUN 18 mg/dL (4-19); BUN/Creat Ratio 22.6 RATIO (10-20); Calcium,Total 9.6 mg/dL (7.6-11.0); Carbon Dioxide 26.2 mmol/L (21.0-32.0); Chloride 105 mmol/L (98-108); Cholesterol 141 mg/dL (<=200); Globulin 2.5 g/dL (2.2-4.2); Glucose 99 mg/dL (70-99); Low Density Lipoprotein Calc. 50 mg/dL; Potassium 4.7 mmol/L (3.3-5.1); Triglycerides 50 mg/dL; Very Low Density Lipoprotein 10 mg/dL (5-40); cholesterol:hdl ratio screen 1.75
== END | disposition home or self-care (01) ==
LOC: MFPLAB 11:51
PROVIDERS: Visit Provider Family Medicine
DX: Z00.00 Encounter for general adult medical examination without abnormal findings (principal); R10.9 Unspecified abdominal pain
CPT/HCPCS: 36415; 80053; 80061; 81001; 85025